=== PATIENT | female | born 1995 | race Asian ===

== ENCOUNTER 2016-08-23 18:48 | Emergency (ER) | payer OTHER ==
[~2016-08-23] VITALS: Ht 160 cm; Wt 62.8 kg
[2016-08-23 19:00] VITALS: Ht 160 cm; Wt 62.8 kg
[2016-08-23 19:42] VITALS: BP 110/71; PULSE 85; TEMP 36.9; O2SAT 99
--- NOTE | 2016-08-23 20:35 | EMERGENCY ROOM VISIT NOTE ---
History Report prepared by Sowmya: Bari Leija Under the Supervision of: Dr. Bari Donaldson M.D. First contact with patient: 19:19 Chief Complaint: SWELLING TO EXTREMITY Stated Complaint: STINGING LARGE SWOLLEN BUMP- RT LEG History of Present Illness The patient is a 21 year old female who presents to the Emergency Room with complaints of an episode of right lower leg swelling beginning earlier today. She noticed that this morning the area of swelling also became itchy. She denies any trauma or injury, and does not recall any bug bites. The patient states the swollen area "pinches" when touched. She denies any chance of , but notes she recently had a UTI. The patient denies having any headache, sore throat, back pain, or bowel or bladder issues. She admits to applying moisturizer last night. She denies having any medical problems. Source of History: patient Onset: earlier today Position: leg (right lower) Quality: other (swelling) Timing: other (episode) Associated Symptoms: No back pain, No headache, No sorethroat, No urinary symptoms Note: The patient notes having itchiness around the swollen area. The patient denies having any bowel issues. Review of Systems See HPI for pertinent positives & negatives. A total of 10 systems reviewed and were otherwise negative. Past Medical & Surgical Medical Problems: (1) No Known Active Medical Problems Family History No pertinent family history stated. Social History Smoking Status: Never Smoker Occupation Status: [employer] student Physical Exam Vital Signs Date Time Temp Pulse Resp B/P Pulse Ox O2 Delivery O2 Flow Rate FiO2 08/23/16 19:42 36.9 85 16 110/71 99 08/23/16 19:00 36.9 101 16 133/74 97 Room Air Pain Rating (0-10): 0 Physical Exam General: Non ill appearing young female in no acute distress. HEENT: Normal cephalic atraumatic. Pupils are equal round and reactive to light. Extraocular movements are intact. Oropharynx is pink with moist mucous membranes. No swelling of the mouth lips or tongue. Neck: Supple with a midline trachea. No meningeal signs or stiffness, no JVD or bruits. No Stridor. Chest: Clear to auscultation bilaterally. No wheezes or rhonchi. No increased work of breathing. Heart: regular rate and rhythm. Abdomen: Soft nontender, nondistended without rebound guarding or rigidity. Extremities: No cyanosis clubbing or edema. No calf tenderness or assymetry Spine/Back. Non tender to palpation. No CVA tenderness Skin: Indurated nontender area in the right anterior brownlee; no redness or warmth ; no calf tenderness. Neurologic exam: Cranial nerves two through 12 are intact. Motor and sensation are intact and symmetrical throughout. Medical Decision & Procedures ED Course 1920: Past medical records reviewed. The patient was evaluated in room A8, and a complete history and physical examination were performed. 194: Upon reevaluation, the patient is doing well. I discussed the results and treatment plan with the patient. She verbalized agreement of the treatment plan. The patient was discharged home. Medical Decision Differentials include bug bites, abrasion, infection, and dermatologic process. This patient comes in as described above. she does have a red raised area in her right brownlee and it appears likely a bug bite. It blanches and is not vasculitic. it's been itching and there is no cellulitis. there is no tick .there is no vascular compromise. Use cortisone cream and/or Benadryl and return if : increasing pain, worsening of symptoms, fever or chills, any new problems or concerns. Follow-up with your doctor if not better this week Impression Primary Impression: Leg skin lesion, right Scribe Attestation The scribe's documentation has been prepared under my direction and personally reviewed by me in its entirety. I confirm that the note above accurately reflects all work, treatment, procedures, and medical decision making performed by me. Departure Information Dispostion Home / Self-Care Referrals No Doctor, Assigned (PCP) Forms WORK / SCHOOL INSTRUCTIONS, HOME CARE DOCUMENTATION FORM, IMPORTANT VISIT INFORMATION Patient Instructions My [facility] Additional Instructions Rest Drink plenty of fluids Ice intermittently. May use Cortisone cream For itching, may use Benadryl pill or cream. Benadryl may make you drowsy do not take before drinking, driving, working Return if: Increasing pain or redness or warmth or fever or chills or any new problems or concerns. Follow- up with the health clinic in 2 days if not better or return here if symptoms worsen at any point
== END 2016-08-23 19:43 | disposition home or self-care (01) ==
LOC: C.EDB 18:52 → C.EDA 19:43
DX: L98.9 Disorder of the skin and subcutaneous tissue, unspecified (principal)